=== PATIENT | male | born 1985 | race Native Hawaiian/Other Pacific Islander ===

== ENCOUNTER 2016-08-01 15:39 | Emergency (ER) | payer OTHER ==
--- NOTE | 2016-08-01 17:06 | RAD ---
SHOULDER-LEFT 2 OR MORE VIEWS History: Shoulder pain after playing softball. Comparison: None. Findings: The osseous structures appear to be intact with no discrete fracture visualized. The glenohumeral alignment appears to be within expected. The acromiohumeral distance is well maintained. No soft tissue calcifications are identified. The acromioclavicular joint is not widened. The included lung field appears to be unremarkable. Impression: 1. Negative views of the left shoulder.
== END 2016-08-01 17:28 | disposition home or self-care (01) ==
LOC: ED 15:39
DX: S46.912A Strain of unspecified muscle, fascia and tendon at shoulder and upper arm level, left arm, initial encounter (principal); X50.0XXA Overexertion from strenuous movement or load, initial encounter; Y93.64 Activity, baseball; Y92.9 Unspecified place or not applicable